=== PATIENT | male | born 1995 | race Caucasian/White ===

== ENCOUNTER 2018-03-15 16:33 | Emergency (ER) | payer BC ==
[2018-03-15] MEDS ORDERED: ONDANSETRON 4 MG/2 ML VIAL ONE (17:01)
[2018-03-15] MEDS ORDERED: MORPHINE 4 MG/ML SYR ONE (17:01)
[2018-03-15 17:04] LABS: Absolute Lymphocytes (CBC) 1.9 K/uL (0.7-4.9); Absolute Monocytes 0.9 K/uL (0.1-1.3); Absolute Neutrophil 4.2 K/uL (1.8-8.0); Basophils % 0.5 % (0-1.3); Eosinophils % 1.9 % (0-4.4); Hematocrit 41.8 % (39.6-49.0); Lymphocytes % 26.5 % (15.3-44.8); MCV 91.5 fL (80-100); MPV 9.5 fL (7.6-11.3); Monocytes % 12.2 % (3.3-12.3); RBC Red Blood Cell Count 4.57 M/uL (4.33-5.43)
[2018-03-15 17:41] LABS: ALT/SGPT 36 U/L (12-78); AST/SGOT 24 U/L (15-37); Albumin 4.2 g/dL (3.4-5.0); Alkaline Phosphatase 105 U/L (45-117); BUN Blood Urea Nitrogen 17 mg/dL (7-18); Bicarbonate 24 mmol/L (21-32); Bilirubin Direct 0.4 mg/dL (0-0.2); Bilirubin Total 1.5 mg/dL (0.2-1.0); Glucose Level 108 mg/dL (74-106); Lipase 48 U/L (73-393); Potassium 3.2 mmol/L (3.5-5.1); Protein, Total 7.2 g/dL (6.4-8.2); Sodium Level 141 mmol/L (136-145)
[2018-03-15] MEDS ORDERED: MAGNESIUM SULFATE 1 gm IVPB 1 GM/100 ML BAG IV ONE (17:52)
[2018-03-15] MEDS ORDERED: NA CHLORIDE 0.9% 1,000 ML ONE (17:52)
[2018-03-15] MEDS ORDERED: KETOROLAC 30 MG/ML INJ ONE (17:52)
[2018-03-15] MEDS ORDERED: TAMSULOSIN 0.4 MG SR CAP ONE (18:33)
[2018-03-15 18:43] LABS: Barbiturates NEGATIVE (NEGATIVE); Benzodiazepines NEGATIVE (NEGATIVE); Cocaine NEGATIVE (NEGATIVE); METHAMPHETAM NEGATIVE (NEGATIVE); Methadone NEGATIVE (NEGATIVE); Opiates POSITIVE (NEGATIVE); Phencyclidine NEGATIVE (NEGATIVE); THC Cannibis NEGATIVE (NEGATIVE)
--- NOTE | 2018-03-15 18:45 | ER ---
Nurse's Notes [facility] Name: Izaiah Clark Jr Age: 22 yrs Sex: Male : 1995 Arrival Date: 03/15/2018 Time: 16:38 Bed 19 Private MD: Diagnosis: Ureterolithiasis Presentation: 03/15 16:57 Presenting complaint: EMS states: LLQ PAIN. Transition of care: patient was not bp received from another setting of care. Onset of symptoms is unknown. Risk Assessment: Do you want to hurt yourself or someone else? Patient reports no desire to harm self or others. Initial Sepsis Screen: Does the patient meet any 2 criteria? No. Patient's initial sepsis screen is negative. Does the patient have a suspected source of infection? No. Patient's initial sepsis screen is negative. Care prior to arrival: IV initiated. 20 GA, in the right antecubital area. 16:57 Method Of Arrival: EMS: [facility] bp 16:57 Acuity: REAGAN 3 bp Triage Assessment: 16:59 General: Appears in no apparent distress. comfortable, slender, unkempt, Behavior is bp cooperative, appropriate for age, anxious. Pain: Complains of pain in abdomen. EENT: No deficits noted. Neuro: Level of Consciousness is awake, alert, obeys commands, Oriented to person, place, time, situation, Appropriate for age. Cardiovascular: No deficits noted. Respiratory: Airway is patent Respiratory effort is even, unlabored, Respiratory pattern is regular, symmetrical. GI: Abdomen is non-distended, Bowel sounds present X 4 quads. : No signs and/or symptoms were reported regarding the genitourinary system. Derm: No deficits noted. Musculoskeletal: Circulation, motion, and sensation intact. Range of motion: intact in all extremities. Historical: - Allergies: 16:59 No Known Allergies; bp - Home Meds: 16:59 None [Active]; bp - PMHx: 16:59 ADD/ADHD; bp - Immunization history:: Adult Immunizations up to date. - Social history:: Smoking status: unknown Patient/guardian denies using alcohol, street drugs. - Ebola Screening: : Patient negative for fever greater than or equal to 101.5 degrees Fahrenheit, and additional compatible Ebola Virus Disease symptoms Patient denies exposure to infectious person Patient denies travel to an Ebola-affected area in the 21 days before illness onset No symptoms or risks identified at this time. - Family history:: not pertinent. - Hospitalizations: : No recent hospitalization is reported. Screenin:02 Abuse screen: Denies threats or abuse. Denies injuries from another. Nutritional bp screening: No deficits noted. Tuberculosis screening: No symptoms or risk factors identified. Fall Risk None identified. Assessment: 17:02 General: SEE TRIAGE NOTE. bp 18:31 Reassessment: ALL CURRENT ORDERS COMPLETED. VS STABLE. PT Rx GIVEN TO PARENT TO FILL bp PRIOR TO D/C. DISPO PENDING. Vital Signs: 16:59 BP 127 / 83; Pulse 86; Resp 20; Temp 98.2; Pulse Ox 100% ; Weight 77.11 kg; Height 6 bp ft. (182.88 cm); 18:31 BP 121 / 79; Pulse 81; Resp 16; Pulse Ox 100% ; bp 16:59 Body Mass Index 23.06 (77.11 kg, 182.88 cm) bp ED Course: 16:38 Patient arrived in ED. rn 16:38 Bj Kothari MD is Attending Physician. rn 16:43 Radiology exam delayed due to lab results not completed at this time. (BUN/Creatinine) vm2 IV insertion attempt and/or patient not having appropriate IV at this time. 16:44 Valentín Laguna, RN is Primary Nurse. bp 16:59 Triage completed. bp 16:59 Arm band placed on. bp 17:02 Patient has correct armband on for positive identification. Bed in low position. Call bp light in reach. Side rails up X2. 17:02 Maintain EMS IV. Dressing intact. Good blood return noted. Site clean \T\ dry. Gauge \T\ bp site: 20 GAUGE R AC. 17:23 CT Abd/Pelvis - W/Contrast In Process Unspecified. EDMS 18:44 Neil Ariza MD is Referral Physician. rn Administered Medications: 16:50 Drug: Zofran 4 mg Route: IVP; Site: right antecubital; bp 17:30 Follow up: Response: No adverse reaction bp 16:50 Drug: morphine 4 mg Route: IVP; Site: right antecubital; bp 17:30 Follow up: Response: Pain is unchanged, physician notified bp 17:50 Drug: NS 0.9% 1000 ml Route: IV; Rate: 1 bolus; Site: right antecubital; bp 17:51 Drug: Ketorolac 30 mg Route: IVP; Site: right antecubital; bp 18:30 Follow up: Response: Pain is decreased bp 17:51 Drug: Magnesium Sulfate 1 grams Route: IVPB; Infused Over: 1 hrs; Site: right bp antecubital; 18:29 Drug: Flomax 0.4 mg Route: PO; bp 18:54 Follow up: Response: No adverse reaction bp 18:54 Drug: Demerol 25 mg Route: IVP; Site: right antecubital; bp 19:14 Follow up: Response: No adverse reaction; Pain is decreased la1 Outcome: 18:44 Discharge ordered by . rn 19:14 Patient left the ED. la1 Signatures: Dispatcher [employer] EDMS Bj Kothari MD MD rn Attema, Lee, RN RN la1 Antonette Mayes 2 Valentín Laguna RN RN bp
--- NOTE | 2018-03-15 18:45 | EDPHYS ---
Physician Documentation [facility] Name: Izaiah Clark Jr Age: 22 yrs Sex: Male : 1995 Arrival Date: 03/15/2018 Time: 16:38 Bed 19 Private MD: ED Physician Bj Kothari HPI: 03/15 17:47 This 22 yrs old Male presents to ER via EMS with complaints of Abdominal Pain.rn 17:47 The patient presents with abdominal pain in the left lower quadrant. Onset: The rn symptoms/episode began/occurred just prior to arrival. The symptoms do not radiate. Associated signs and symptoms: Pertinent positives: nausea and vomiting, Pertinent negatives: anorexia, blood in stools, chest pain, constipation, diarrhea, dysuria, fever, hematuria, testicular pain, vomiting, vomiting blood. Modifying factors: The symptoms are alleviated by nothing, the symptoms are aggravated by movement, touching the area. Severity of pain: At its worst the pain was moderate in the emergency department the pain is unchanged. The patient has not experienced similar symptoms in the past. Woke up with pain in LLQ and left abdomen, assoc with nausea, thrown up once, no fever, no testicle pain, no testicle swelling, no trauma, no hematuria, reports felt fine prior to nap, woke up with pain, constant, but worsening in waves. . Historical: - Allergies: 16:59 No Known Allergies; bp - Home Meds: 16:59 None [Active]; bp - PMHx: 16:59 ADD/ADHD; bp - Immunization history:: Adult Immunizations up to date. - Social history:: Smoking status: unknown Patient/guardian denies using alcohol, street drugs. - Ebola Screening: : Patient negative for fever greater than or equal to 101.5 degrees Fahrenheit, and additional compatible Ebola Virus Disease symptoms Patient denies exposure to infectious person Patient denies travel to an Ebola-affected area in the 21 days before illness onset No symptoms or risks identified at this time. - Family history:: not pertinent. - Hospitalizations: : No recent hospitalization is reported. ROS: 17:47 Constitutional: Negative for fever, chills, and weight loss, Eyes: Negative for injury, rn pain, redness, and discharge, Neck: Negative for injury, pain, and swelling, Cardiovascular: Negative for chest pain, palpitations, and edema, Respiratory: Negative for shortness of breath, cough, wheezing, and pleuritic chest pain, Abdomen/GI: Negative for diarrhea, and constipation, Back: Negative for injury and pain, : Negative for injury, bleeding, discharge, and swelling, MS/Extremity: Negative for injury and deformity, Skin: Negative for injury, rash, and discoloration, Neuro: Negative for headache, weakness, numbness, tingling, and seizure. Exam: 17:47 Constitutional: This is a well developed, well nourished patient who is awake, alert, rn appears uncomfortable Head/Face: Normocephalic, atraumatic. ENT: MMM Cardiovascular: Regular rate and rhythm with a normal S1 and S2. No gallops, murmurs, or rubs. Normal PMI, no JVD. No pulse deficits. Respiratory: Lungs have equal breath sounds bilaterally, clear to auscultation and percussion. No rales, rhonchi or wheezes noted. No increased work of breathing, no retractions or nasal flaring. Abdomen/GI: soft, mild LLQ tenderness, no rebound, no masses Back: No spinal tenderness. No costovertebral tenderness. Full range of motion. MS/ Extremity: Pulses equal, no cyanosis. Neurovascular intact. Full, normal range of motion. Equal circumference. Neuro: Awake and alert, GCS 15, oriented to person, place, time, and situation. Cranial nerves II-XII grossly intact. Motor strength 5/5 in all extremities. Sensory grossly intact. Vital Signs: 16:59 BP 127 / 83; Pulse 86; Resp 20; Temp 98.2; Pulse Ox 100% ; Weight 77.11 kg; Height 6 bp ft. (182.88 cm); 18:31 BP 121 / 79; Pulse 81; Resp 16; Pulse Ox 100% ; bp 16:59 Body Mass Index 23.06 (77.11 kg, 182.88 cm) bp MDM: 16:38 Patient medically screened. rn 18:33 Differential diagnosis: diverticulitis, non-specific abd pain, pancreatitis, rn Ureterolithiasis, urinary tract infection. Data reviewed: vital signs, nurses notes, lab test result(s), radiologic studies, CT scan. Counseling: I had a detailed discussion with the patient and/or guardian regarding: the historical points, exam findings, and any diagnostic results supporting the discharge/admit diagnosis, lab results, radiology results, the need for outpatient follow up, to return to the emergency department if symptoms worsen or persist or if there are any questions or concerns that arise at home. Response to treatment: the patient's symptoms have markedly improved after treatment, and as a result, I will discharge patient. Special discussion: Based on the patient's Hx, exam, and Dx evaluation, there is no indication for emergent surgery or inpatient Tx. It is understood by the patient/guardian that if the Sx's persist or worsen they need to return immediately for re-evaluation. I discussed with the patient/guardian in detail that at this point there is no indication for admission to the hospital. It is understood, however, that if the symptoms persist or worsen the patient needs to return immediately for re-evaluation. Based on the history and exam findings, there is no indication for further emergent testing or inpatient evaluation. I discussed with the patient/guardian the need to see the primary care provider for further evaluation of the symptoms. I discussed with the patient/guardian the need to see the urologist for further evaluation of the symptoms. 18:39 ED course: Prescriptions given to mother anticipating discharge so that she can obtain rn meds prior to pharmacy closure. . 18:43 ED course: Pt with marked improvement of pain, now 05/29. Will dc home with pcp f/u and assembler metal furniture f/u. Return precautions given, feels movement and now feels migration of pain to groin/suprapubic region. Much more comfortable. . 03/15 16:39 Order name: Basic Metabolic Panel; Complete Time: 17:45 03/15 16:39 Order name: CBC with Diff; Complete Time: 17:07 rn 03/15 16:39 Order name: Hepatic Function; Complete Time: 17:45 rn 03/15 16:39 Order name: Lipase; Complete Time: 17:45 03/15 17:45 Order name: Urine Drug Screen 03/15 18:17 Order name: Urine Dipstick--Ancillary (enter results) 03/15 16:40 Order name: CT Abd/Pelvis - W/Contrast 03/15 16:39 Order name: IV Saline Lock; Complete Time: 17:04 03/15 16:39 Order name: Labs collected and sent; Complete Time: 17:04 03/15 17:45 Order name: Urine Dipstick-Ancillary (obtain specimen); Complete Time: 17:51 rn Administered Medications: 16:50 Drug: Zofran 4 mg Route: IVP; Site: right antecubital; bp 17:30 Follow up: Response: No adverse reaction bp 16:50 Drug: morphine 4 mg Route: IVP; Site: right antecubital; bp 17:30 Follow up: Response: Pain is unchanged, physician notified bp 17:50 Drug: NS 0.9% 1000 ml Route: IV; Rate: 1 bolus; Site: right antecubital; bp 17:51 Drug: Ketorolac 30 mg Route: IVP; Site: right antecubital; bp 18:30 Follow up: Response: Pain is decreased bp 17:51 Drug: Magnesium Sulfate 1 grams Route: IVPB; Infused Over: 1 hrs; Site: right bp antecubital; 18:29 Drug: Flomax 0.4 mg Route: PO; bp 18:54 Follow up: Response: No adverse reaction bp 18:54 Drug: Demerol 25 mg Route: IVP; Site: right antecubital; bp 19:14 Follow up: Response: No adverse reaction; Pain is decreased la1 Disposition: 03/15/18 18:44 Discharged to Home. Impression: Ureterolithiasis. - Condition is Stable. - Discharge Instructions: Kidney Stones, Dietary Guidelines to Help Prevent Kidney Stones. - Prescriptions for Zofran ODT 4 mg Oral tablet,disintegrating - place 1 tablet by TRANSLINGUAL route every 8 hours As needed; 20 tablet. Ibuprofen 800 mg Oral Tablet - take 1 tablet by ORAL route every 12 hours As needed take with food; 20 tablet. Tylenol- Codeine #3 300-30 mg Oral Tablet - take 2 tablet by ORAL route every 6 hours As needed; 30 tablet. Flomax 0.4 mg Oral Capsule, Sust. Release 24 hr - take 1 capsule by ORAL route once daily 1/2 hour following the same meal each day; 5 capsule. - Medication Reconciliation Form, Thank You Letter, Antibiotic Education, Prescription Opioid Use form. - Work release form (03/15/18 19:20). em1 - Family Work Release (03/15/18 19:20). em1 - Follow up: Neil Ariza MD; When: As needed; Reason: Recheck today's complaints, Re-evaluation by your physician. - Problem is new. - Symptoms have improved. Signatures: Dispatcher [employer] EDMS Bj Kothari MD MD rn Attema, Lee, RN RN la1 Valentín Laguna RN RN Marvin Romero1 Corrections: (The following items were deleted from the chart) 19:14 18:44 03/15/2018 18:44 Discharged to Home. Impression: Ureterolithiasis. Condition is la1 Stable. Discharge Instructions: Kidney Stones, Dietary Guidelines to Help Prevent Kidney Stones. Prescriptions for Zofran ODT 4 mg Oral tablet,disintegrating - place 1 tablet by TRANSLINGUAL route every 8 hours As needed; 20 tablet, Ibuprofen 800 mg Oral Tablet - take 1 tablet by ORAL route every 12 hours As needed take with food; 20 tablet, Tylenol-Codeine #3 300-30 mg Oral Tablet - take 2 tablet by ORAL route every 6 hours As needed; 30 tablet, Flomax 0.4 mg Oral Capsule, Sust. Release 24 hr - take 1 capsule by ORAL route once daily 1/2 hour following the same meal each day; 5 capsule. and Forms are Medication Reconciliation Form, Thank You Letter, Antibiotic Education, Prescription Opioid Use. Follow up: Neil Ariza; When: As needed; Reason: Recheck today's complaints, Re-evaluation by your physician. Problem is new. Symptoms have improved. rn
[2018-03-15 18:54] LABS: Urine Blood 3+ (NEG); Urine Glucose NEGATIVE (NEG); Urine Protein 2+ (NEG); Urine Specific Gravity 1.015 (1.005-1.030)
[2018-03-15] MEDS ORDERED: MEPERIDINE HCL 25 MG/0.5 ML ONE (18:58)
--- NOTE | 2018-03-16 11:14 | RAD REPORT ---
EXAM DESCRIPTION: CT - Abdomen Pelvis W Contrast - 03/15/2018 9:41 pm CLINICAL HISTORY: Abdominal pain, left flank pain Final written report was delayed due to network malfunction. Images were reviewed and findings teleph oned to the emergency department at the time of the study. COMPARISON: None. TECHNIQUE: Biphasic, helical CT imaging of the abdomen and pelvis was performed following 100 ml non -ionic IV contrast. Oral contrast was given. All CT scans are performed using dose optimization technique as appropriate and may include automated exposure control or mA/KV adjustment according to patient size. FINDINGS: No suspicious findings in the lung bases. The liver, spleen, and pancreas show no suspicious findings. Gallbladder and biliary tree are also wi thout suspicious finding. Renal function is asymmetric, delayed on the left, with no pyelonephritis or suspicious renal parench ymal process. No right-sided hydronephrosis. Patient has left-sided hydronephrosis secondary to a 5 m m left ureter calcification. When viewed on a KUB projection the obstructing stone would be superimpo sed on the left lateral margin L3 vertebrae. No other obstructing or nonobstructing calculi. No adren al gland abnormality. Contracted urinary bladder shows no suspicious finding. No dilated bowel loops or bowel wall thickening. No free air, free fluid or inflammatory stranding. No hernia, mass or bulky lymphadenopathy. No suspicious bony findings. IMPRESSION: Mild left-sided hydronephrosis secondary to a 5 mm left mid ureter stone. When viewed on a KUB projection, the obstructing calculus would be superimposed on the left lateral m argin L3 vertebrae.
== END 2018-03-15 19:14 | disposition home or self-care (01) ==
LOC: ER 16:33
DX: N20.1 Calculus of ureter (principal)
CPT/HCPCS: 36415; 74177; 80048; 80076; 80307; 81003; 83690; 85025; 96374; 96375; 99283; J2175; J2405; J3475; J7030; Q9967

== ENCOUNTER 2018-03-19 08:47 | Emergency (ER) | payer BC ==
[2018-03-19 10:00] LABS: Absolute Lymphocytes (CBC) 1.4 K/uL (0.7-4.9); Absolute Monocytes 0.6 K/uL (0.1-1.3); Absolute Neutrophil 3.2 K/uL (1.8-8.0); Basophils % 0.4 % (0-1.3); Eosinophils % 2.8 % (0-4.4); Hematocrit 40.9 % (39.6-49.0); Lymphocytes % 26.1 % (15.3-44.8); MCH 31.4 pg (27.0-35.0); MCV 91.3 fL (80-100); Monocytes % 11.5 % (3.3-12.3); RBC Red Blood Cell Count 4.48 M/uL (4.33-5.43)
[2018-03-19 10:10] LABS: BUN Blood Urea Nitrogen 11 mg/dL (7-18); Bicarbonate 26 mmol/L (21-32); Glucose Level 97 mg/dL (74-106); Potassium 3.6 mmol/L (3.5-5.1); Sodium Level 141 mmol/L (136-145)
[2018-03-19 10:48] LABS: Urine Bacteria NONE SEEN /HPF (NONE SEEN)
[2018-03-19 10:49] LABS: Urine Culture Reflex Order NOT NEEDED; Urine Mucus 1+ /HPF (NONE SEEN)
--- NOTE | 2018-03-19 10:53 | RAD REPORT ---
EXAM DESCRIPTION: RAD - Abdomen 1 View (KUB) - 03/19/2018 10:40 am CLINICAL HISTORY: history left kidney stone Pain COMPARISON: Abdomen Pelvis W Contrast dated 03/15/2018 FINDINGS: The bowel gas pattern is non-obstructive. No evidence of free air or pneumatosis. Small ca lcification in the left pelvis probably represents the patient's prior left ureter stone which has mi grated to the left UVJ.
--- NOTE | 2018-03-19 12:35 | ER ---
Nurse's Notes [facility] Name: Izaiah Clark Jr Age: 22 yrs Sex: Male : 1995 Arrival Date: 03/19/2018 Time: 08:50 Bed 19 Private MD: None, None Diagnosis: Hematuria, unspecified;Calculus of lower urinary tract, unspecified Presentation: 03/19 09:08 Presenting complaint: Patient states: was seen here Wednesday night for kidney stone, was em told to come back to ER in 3-4 days if not passed, pt reports having a 5cm stone, currently denies N/V, pain or fever. Transition of care: patient was not received from another setting of care. Onset of symptoms was March 15, 2018. Risk Assessment: Do you want to hurt yourself or someone else? Patient reports no desire to harm self or others. Initial Sepsis Screen: Does the patient meet any 2 criteria? No. Patient's initial sepsis screen is negative. Does the patient have a suspected source of infection? No. Patient's initial sepsis screen is negative. Care prior to arrival: None. 09:08 Method Of Arrival: Ambulatory em 09:15 Acuity: REAGAN 3 hb Triage Assessment: 09:11 General: Appears in no apparent distress. comfortable, Behavior is calm, cooperative. em Pain: Denies pain. GI: Abdomen is flat, Bowel sounds present X 4 quads. Abd is soft and non tender X 4 quads. Historical: - Allergies: 09:11 No Known Allergies; em - PMHx: 09:11 ADD/ADHD; Kidney stones; em - PSHx: 09:11 None; em - Immunization history:: Adult Immunizations not up to date. - Social history:: Smoking status: Patient/guardian denies using tobacco. - Ebola Screening: : Patient negative for fever greater than or equal to 101.5 degrees Fahrenheit, and additional compatible Ebola Virus Disease symptoms Patient denies exposure to infectious person Patient denies travel to an Ebola-affected area in the 21 days before illness onset No symptoms or risks identified at this time. Screenin:12 Abuse screen: Denies threats or abuse. Nutritional screening: No deficits noted. em Tuberculosis screening: No symptoms or risk factors identified. Fall Risk None identified. Assessment: 09:11 General: Appears in no apparent distress. distressed, comfortable, well groomed, well em developed, well nourished, Behavior is calm, cooperative, Denies fever. Pain: Denies pain. Neuro: Level of Consciousness is awake, alert, obeys commands, Oriented to person, place, time, situation. Cardiovascular: Capillary refill < 3 seconds Patient's skin is warm and dry. Respiratory: Airway is patent Respiratory effort is even, unlabored, Respiratory pattern is regular, symmetrical. GI: Abdomen is flat, Bowel sounds present X 4 quads. Abd is soft and non tender X 4 quads. Patient currently denies nausea, vomiting. : Denies burning with urination, inability to void. EENT: No signs and/or symptoms were reported regarding the EENT system. Derm: Skin is intact, Skin is pink, warm \T\ dry. Musculoskeletal: Circulation, motion, and sensation intact. Capillary refill < 3 seconds, Range of motion: intact in all extremities. 09:15 Reassessment: I agree with previous assessment. hb 10:00 Reassessment: Patient appears in no apparent distress at this time. Patient and/or em family updated on plan of care and expected duration. Pain level reassessed. Patient is alert, oriented x 3, equal unlabored respirations, skin warm/dry/pink. Patient denies pain at this time. 11:00 Reassessment: Patient appears in no apparent distress at this time. Patient and/or em family updated on plan of care and expected duration. Pain level reassessed. Patient is alert, oriented x 3, equal unlabored respirations, skin warm/dry/pink. Patient denies pain at this time. 11:41 Reassessment: Patient appears in no apparent distress at this time. Patient and/or em family updated on plan of care and expected duration. Pain level reassessed. Patient is alert, oriented x 3, equal unlabored respirations, skin warm/dry/pink. ultrasound at bedside. 12:44 Reassessment: Patient appears in no apparent distress at this time. Patient and/or em family updated on plan of care and expected duration. Pain level reassessed. Patient is alert, oriented x 3, equal unlabored respirations, skin warm/dry/pink. Patient denies pain at this time. Vital Signs: 09:11 BP 114 / 76; Pulse 67; Resp 18; Temp 98.0(O); Pulse Ox 100% on R/A; Weight 58.97 kg; em Height 6 ft. 0 in. (182.88 cm); Pain 0/10; 10:00 BP 114 / 72; Pulse 67; Resp 18; Pulse Ox 100% on R/A; Pain 0/10; em 11:42 BP 118 / 77; Pulse 63; Resp 16; Pulse Ox 99% on R/A; Pain 0/10; em 12:44 BP 119 / 79; Pulse 69; Resp 16; Pulse Ox 99% on R/A; Pain 0/10; em 09:11 Body Mass Index 17.63 (58.97 kg, 182.88 cm) em ED Course: 08:50 Patient arrived in ED. sb2 08:51 None, None is Private Physician. sb2 09:01 Dago Espinosa LVN is Primary Nurse. em 09:11 Arm band placed on. em 09:12 Patient has correct armband on for positive identification. Placed in gown. Bed in low em position. Call light in reach. Side rails up X2. Adult w/ patient. 09:15 Triage completed. hb 09:23 Urine collected: clean catch specimen, clear. em 09:39 Nic Pham PA is PHCP. cp 09:39 Nic Herrera MD is Attending Physician. cp 09:52 Initial lab(s) drawn, by me, sent to lab. Inserted saline lock: 20 gauge in right em antecubital area, using aseptic technique. Blood collected. 11:28 Ultrasound completed. Patient tolerated well. sg3 12:33 Neil Ariza MD is Referral Physician. cp 12:44 No provider procedures requiring assistance completed. IV discontinued, intact, em bleeding controlled, No redness/swelling at site. Pressure dressing applied. Administered Medications: No medications were administered Outcome: 12:34 Discharge ordered by . cp 12:44 Discharged to home ambulatory, with family. em 12:44 Condition: good 12:44 Discharge instructions given to patient, family, Instructed on discharge instructions, follow up and referral plans. urine strainer, Demonstrated understanding of instructions, follow-up care. 12:45 Patient left the ED. em Signatures: Dago Espinosa LVN LVN em Nic Pham PA PA cp Baxter, Heather, RN RN Kayleigh Nicole sg3 Martha Brandon sb2 Corrections: (The following items were deleted from the chart) :14 09:08 Presenting complaint: Patient states: was seen here Wednesday night for kidney em stone, was told to come back to ER in 3-4 days if not passed, pt reports having a 5cm stone, currently denies N/V, pain or fever em
--- NOTE | 2018-03-19 12:35 | EDPHYS ---
Physician Documentation [facility] Name: Izaiah Clrak Jr Age: 22 yrs Sex: Male : 1995 Arrival Date: 03/19/2018 Time: 08:50 Bed 19 Private MD: None, None ED Physician Nic Herrera HPI: 03/19 09:50 This 22 yrs old Male presents to ER via Ambulatory with complaints of cp Possible Kidney Stone. 09:50 Patient reports being diagnosed with left side ureter stone this past Wednesday. Patient cp denies pain today and is here for f/u. Historical: - Allergies: 09:11 No Known Allergies; em - PMHx: 09:11 ADD/ADHD; Kidney stones; em - PSHx: 09:11 None; em - Immunization history:: Adult Immunizations not up to date. - Social history:: Smoking status: Patient/guardian denies using tobacco. - Ebola Screening: : Patient negative for fever greater than or equal to 101.5 degrees Fahrenheit, and additional compatible Ebola Virus Disease symptoms Patient denies exposure to infectious person Patient denies travel to an Ebola-affected area in the 21 days before illness onset No symptoms or risks identified at this time. ROS: 10:00 Constitutional: Negative for body aches, chills, fever, poor PO intake. cp 10:00 Eyes: Negative for injury, pain, redness, and discharge. cp 10:00 ENT: Negative for drainage from ear(s), ear pain, sore throat, difficulty swallowing, difficulty handling secretions. 10:00 Cardiovascular: Negative for chest pain, edema, palpitations. 10:00 Respiratory: Negative for cough, shortness of breath, wheezing. 10:00 Abdomen/GI: Negative for abdominal pain, nausea, vomiting, and diarrhea, constipation. 10:00 Back: Negative for pain at rest, pain with movement, radiated pain. 10:00 : Negative for urinary symptoms, testicular pain 10:00 Skin: Negative for cellulitis, rash. 10:00 Neuro: Negative for headache, weakness. 10:00 All other systems are negative. Exam: 10:05 Constitutional: The patient appears in no acute distress, alert, awake, comfortable, cp non-toxic, well developed, well nourished. 10:05 Head/Face: Normocephalic, atraumatic. cp 10:05 Eyes: Periorbital structures: appear normal, Conjunctiva: normal, no exudate, no injection, Sclera: no appreciated abnormality, Lids and lashes: appear normal, bilaterally. 10:05 ENT: External ear(s): are unremarkable, Nose: is normal, Mouth: Lips: moist, Oral mucosa: pink and intact, moist, Posterior pharynx: is normal, airway is patent, no erythema, no exudate. 10:05 Chest/axilla: Inspection: normal, Palpation: is normal, no crepitus, no tenderness. 10:05 Cardiovascular: Rate: normal, Rhythm: regular. 10:05 Respiratory: the patient does not display signs of respiratory distress, Respirations: normal, no use of accessory muscles, no retractions, no splinting, no tachypnea, labored breathing, is not present, Breath sounds: are clear throughout, no decreased breath sounds, no stridor, no wheezing. 10:05 Abdomen/GI: Inspection: abdomen appears normal, Bowel sounds: active, all quadrants, Palpation: abdomen is soft and non-tender, in all quadrants, rebound tenderness, is not appreciated, voluntary guarding, is not appreciated, involuntary guarding, is not appreciated. 10:05 Back: CVA tenderness, is absent. 10:05 Skin: cellulitis, is not appreciated, no rash present. 10:05 Neuro: Orientation: to person, place \T\ time. Mentation: is normal, Cerebellar function: is grossly normal, Motor: moves all fours, strength is normal, Sensation: is normal. Vital Signs: 09:11 BP 114 / 76; Pulse 67; Resp 18; Temp 98.0(O); Pulse Ox 100% on R/A; Weight 58.97 kg; em Height 6 ft. 0 in. (182.88 cm); Pain 0/10; 10:00 BP 114 / 72; Pulse 67; Resp 18; Pulse Ox 100% on R/A; Pain 0/10; em 11:42 BP 118 / 77; Pulse 63; Resp 16; Pulse Ox 99% on R/A; Pain 0/10; em 12:44 BP 119 / 79; Pulse 69; Resp 16; Pulse Ox 99% on R/A; Pain 0/10; em 09:11 Body Mass Index 17.63 (58.97 kg, 182.88 cm) em MDM: 09:40 Patient medically screened. 10:00 Differential diagnosis: nephrolithiasis, pyelonephritis, UTI, testicular torsion. 12:33 Data reviewed: vital signs, nurses notes, lab test result(s), radiologic studies, plain cp films, ultrasound, and as a result, I will discharge patient. 12:33 Counseling: I had a detailed discussion with the patient and/or guardian regarding: the cp historical points, exam findings, and any diagnostic results supporting the discharge/admit diagnosis, lab results, radiology results, the need for outpatient follow up, a urologist, to return to the emergency department if symptoms worsen or persist or if there are any questions or concerns that arise at home. ED course: VSS. Patient denies any pain. Will discharge to home for continued monitoring and recommend f/u with urology. 03/20 12:33 ED course: Spoke with patient concerning radiology findings of calculus at left UVJ. Patient instructed to contact office of DR Ariza tomorrow for f/u. 03/19 09:44 Order name: Urine Microscopic Only 03/19 09:44 Order name: BMP 03/19 09:44 Order name: CBC with Diff 03/19 10:01 Order name: CBC with Automated Diff; Complete Time: 10:27 EDMS 03/19 10:27 Interpretation: Reviewed. 03/19 10:05 Order name: Urine Dipstick--Ancillary (enter results) 03/19 10:10 Order name: Basic Metabolic Panel; Complete Time: 10:27 EDMS 03/19 10:27 Interpretation: Normal except: CL 108. 03/19 09:44 Order name: Urine Dipstick-Ancillary (obtain specimen); Complete Time: 09:52 03/19 09:44 Order name: XRAY KUB 03/19 10:49 Order name: Urine Microscopic Only; Complete Time: 11:00 EDMS 03/19 11:00 Interpretation: Normal except: URBC 10-20. 03/19 10:53 Order name: RAD; Complete Time: 11:00 EDMS 03/19 11:02 Order name: US Rp Exam Limited 03/19 12:41 Order name: US; Complete Time: 10:27 EDMS Administered Medications: No medications were administered Disposition: 03/19/18 12:34 Discharged to Home. Impression: Hematuria, unspecified, Calculus of lower urinary tract, unspecified. - Condition is Stable. - Discharge Instructions: Hematuria, Adult. - Medication Reconciliation Form, Thank You Letter, Antibiotic Education, Prescription Opioid Use form. - Follow up: Neil Ariza MD; When: 2 - 3 days; Reason: Recheck today's complaints. - Problem is new. - Symptoms have improved. Addendum: 03/21/2018 07:19 Co-signature as Attending Physician, Nic Herrera MD I agree with the assessment and c adame plan of care. Signatures: Dispatcher [employer] EDNH Nic Herrera MD MD cha Munoz, Edgar, LEARNING AND DEVELOPMENT ADMINISTRATOR LEARNING AND DEVELOPMENT ADMINISTRATOR em Nic Pham PA PA cp Corrections: (The following items were deleted from the chart) 03/19 12:45 12:34 03/19/2018 12:34 Discharged to Home. Impression: Hematuria, unspecified; Calculus em of lower urinary tract, unspecified. Condition is Stable. Forms are Medication Reconciliation Form, Thank You Letter, Antibiotic Education, Prescription Opioid Use. Follow up: Neil Ariza; When: 2 - 3 days; Reason: Recheck today's complaints. Problem is new. Symptoms have improved. cp
--- NOTE | 2018-03-19 12:40 | RAD REPORT ---
EXAM DESCRIPTION: US - Renal Ultrasound-Limited - 03/19/2018 12:25 pm CLINICAL HISTORY: history left kidney stone, hematuria COMPARISON: Abdomen 1 View (KUB) dated 03/19/2018; Abdomen Pelvis W Contrast dated 03/15/2018 FINDINGS: A limited study was requested. The right kidney was not imaged. The left kidney measures 11.4 x 5.2 x 4.4 cm. No hydronephrosis, focal mass or perinephric fluid. Small stone is present at the left UVJ of the bladder. IMPRESSION: Small stone is suspected along the left UVJ of the bladder.
== END 2018-03-19 12:45 | disposition home or self-care (01) ==
LOC: ER 08:47
DX: N21.8 Other lower urinary tract calculus (principal)
CPT/HCPCS: 36415; 74018; 76775; 80048; 81015; 85025; 99283

== ENCOUNTER 2018-09-28 10:15 | Emergency (ER) | payer BC ==
--- NOTE | 2018-09-28 11:02 | ER ---
Nurse's Notes [facility] Name: Izaiah Clark Jr Age: 22 yrs Sex: Male : 1995 Arrival Date: 09/28/2018 Time: 10:17 Bed 12 Private MD: Diagnosis: Right foot pain;Tendonitis Presentation: 09/28 10:20 Presenting complaint: Patient states: i fell about 3 hours ago and hurt the bottom of hj my R foot; pain is 2/10;. Transition of care: patient was not received from another setting of care. Onset of symptoms was September 28, 2018. Risk Assessment: Do you want to hurt yourself or someone else? Patient reports no desire to harm self or others. Initial Sepsis Screen: Does the patient meet any 2 criteria? No. Patient's initial sepsis screen is negative. Does the patient have a suspected source of infection? No. Patient's initial sepsis screen is negative. Care prior to arrival: None. 10:20 Method Of Arrival: Ambulatory 10:20 Acuity: REAGAN 4 hj Triage Assessment: 10:25 General: Appears in no apparent distress. uncomfortable, Behavior is calm, cooperative, hj appropriate for age. Pain: Complains of pain in right foot. EENT: No signs and/or symptoms were reported regarding the EENT system. Neuro: Level of Consciousness is awake, alert, obeys commands, Oriented to person, place, time, situation, Appropriate for age. Cardiovascular: Capillary refill < 3 seconds Patient's skin is warm and dry. Respiratory: Airway is patent Respiratory effort is even, unlabored, Respiratory pattern is regular, symmetrical. GI: No signs and/or symptoms were reported involving the gastrointestinal system. : No signs and/or symptoms were reported regarding the genitourinary system. Derm: No signs and/or symptoms reported regarding the dermatologic system. Musculoskeletal: Reports pain in right foot. Historical: - Allergies: 10:21 No Known Allergies; hj - Home Meds: 10:21 None [Active]; hj - PMHx: 10:21 ADD/ADHD; Kidney stones; hj - PSHx: 10:21 None; hj - Immunization history:: Adult Immunizations up to date. - Social history:: Smoking status: Patient/guardian denies using tobacco, Patient/guardian denies using alcohol. - Ebola Screening: : Patient negative for fever greater than or equal to 101.5 degrees Fahrenheit, and additional compatible Ebola Virus Disease symptoms Patient denies exposure to infectious person Patient denies travel to an Ebola-affected area in the 21 days before illness onset. Screenin:25 Abuse screen: Denies threats or abuse. Denies injuries from another. Nutritional hj screening: No deficits noted. Tuberculosis screening: No symptoms or risk factors identified. Fall Risk None identified. Assessment: 10:26 Reassessment: see triage notes for assessment;. Reassessment: ice pack applied to R hj foot;. Vital Signs: 10:21 BP 129 / 68; Pulse 83; Resp 16; Temp 99.4(TE); Pulse Ox 99% on R/A; Weight 77.11 kg; hj Height 6 ft. 0 in. (182.88 cm); Pain 2/10; 10:21 Body Mass Index 23.06 (77.11 kg, 182.88 cm) ED Course: 10:17 Patient arrived in ED. mr 10:21 Triage completed. hj 10:21 Arm band placed on left wrist. hj 10:25 Gumaro Peacock, RN is Primary Nurse. hj 10:25 Alessandro Amado MD is Attending Physician. ps1 10:26 Patient has correct armband on for positive identification. Bed in low position. Call light in reach. Side rails up X 1. Adult w/ patient. 10:52 Foot Right 3 View XRAY In Process Unspecified. EDMS 11:27 No provider procedures requiring assistance completed. Patient did not have IV access ss during this emergency room visit. Ortho shoe applied to right foot. Administered Medications: No medications were administered Outcome: 11:01 Discharge ordered by . ps1 11:30 Discharged to home ambulatory, with family. ss 11:30 Condition: good 11:30 Discharge instructions given to patient, family, Instructed on discharge instructions, follow up and referral plans. medication usage, Demonstrated understanding of instructions, follow-up care, medications, Prescriptions given X 1. 11:31 Patient left the ED. ss Signatures: Dispatcher [employer] EDAK Paola De Los SantosPolly RN RN ss Joaquin, Henry, RN RN hj Singer, Phillip, MD MD ps1 Corrections: (The following items were deleted from the chart) 10:22 10:21 Pulse 83bpm; Resp 16bpm; Pulse Ox 99% RA; Temp 99.4F Temporal; 77.11 kg; Height 6 hj ft. 0 in.; BMI: 23.0; Pain 2/10; hj
--- NOTE | 2018-09-28 11:02 | EDPHYS ---
Physician Documentation [facility] Name: Izaiah Clark Jr Age: 22 yrs Sex: Male : 1995 Arrival Date: 09/28/2018 Time: 10:17 Bed 12 Private MD: ED Physician Alessandro Amado HPI: 09/28 10:29 This 22 yrs old Male presents to ER via Ambulatory with complaints of Foot ps1 Injury. 10:29 patient states that he fell a couple of hours ago and now has pain with weight bearing. ps1 No obvious deformity. Maintains FROM. Pain is rated as mild. Localized to the arch of the foot. . Historical: - Allergies: 10:21 No Known Allergies; hj - Home Meds: 10:21 None [Active]; hj - PMHx: 10:21 ADD/ADHD; Kidney stones; hj - PSHx: 10:21 None; hj - Immunization history:: Adult Immunizations up to date. - Social history:: Smoking status: Patient/guardian denies using tobacco, Patient/guardian denies using alcohol. - Ebola Screening: : Patient negative for fever greater than or equal to 101.5 degrees Fahrenheit, and additional compatible Ebola Virus Disease symptoms Patient denies exposure to infectious person Patient denies travel to an Ebola-affected area in the 21 days before illness onset. ROS: 10:29 Constitutional: Negative for fever, chills, and weight loss, Cardiovascular: Negative ps1 for chest pain, palpitations, and edema, Respiratory: Negative for shortness of breath, cough, wheezing, and pleuritic chest pain, Abdomen/GI: Negative for abdominal pain, nausea, vomiting, diarrhea, and constipation, Skin: Negative for injury, rash, and discoloration, Neuro: Negative for headache, weakness, numbness, tingling, and seizure. 10:29 MS/extremity: Positive for decreased range of motion, pain, tenderness, of the instep of right foot. Exam: 10:29 Constitutional: This is a well developed, well nourished patient who is awake, alert, ps1 and in no acute distress. Head/Face: Normocephalic, atraumatic. Eyes: Pupils equal round and reactive to light, extra-ocular motions intact. Lids and lashes normal. Conjunctiva and sclera are non-icteric and not injected. Cardiovascular: Regular rate and rhythm. No gallops, murmurs, or rubs. Normal PMI, no JVD. No pulse deficits. Respiratory: Lungs have equal breath sounds bilaterally, clear to auscultation and percussion. No rales, rhonchi or wheezes noted. No increased work of breathing, no retractions or nasal flaring. Abdomen/GI: Soft, non-tender, with normal bowel sounds. No distension or tympany. No guarding or rebound. No evidence of tenderness throughout. 10:29 Skin: Warm, dry with normal turgor. Normal color with no rashes, no lesions, and no evidence of cellulitis. Neuro: Awake and alert, GCS 15, oriented to person, place, time, and situation. Cranial nerves II-XII grossly intact. Sensory grossly intact. 10:29 Musculoskeletal/extremity: Extremities: grossly normal except: noted in the right foot: decreased ROM, pain. Vital Signs: 10:21 BP 129 / 68; Pulse 83; Resp 16; Temp 99.4(TE); Pulse Ox 99% on R/A; Weight 77.11 kg; hj Height 6 ft. 0 in. (182.88 cm); Pain 2/10; 10:21 Body Mass Index 23.06 (77.11 kg, 182.88 cm) hj MDM: 10:40 Patient medically screened. ps1 11:00 Data reviewed: vital signs, nurses notes, radiologic studies, and as a result, I will ps1 discharge patient. Counseling: I had a detailed discussion with the patient and/or guardian regarding: the historical points, exam findings, and any diagnostic results supporting the discharge/admit diagnosis, radiology results, the need for outpatient follow up, a orthopedic surgeon, to return to the emergency department if symptoms worsen or persist or if there are any questions or concerns that arise at home. 09/28 10:25 Order name: Foot Right 3 View XRAY ps1 Administered Medications: No medications were administered Disposition: 09/28/18 11:01 Discharged to Home. Impression: Right foot pain, Tendonitis. - Condition is Stable. - Discharge Instructions: Foot Pain. - Prescriptions for Anaprox DS 550 mg Oral Tablet - take 1 tablet by ORAL route every 12 hours As needed; 20 tablet. - Work release form, Medication Reconciliation Form, Thank You Letter, Antibiotic Education, Prescription Opioid Use form. - Follow up: Private Physician; When: As needed; Reason: Further diagnostic work-up, Recheck today's complaints, Continuance of care, Re-evaluation by your physician. Follow up: Emergency Department; When: As needed; Reason: Worsening of condition. - Problem is new. - Symptoms are unchanged. Signatures: Dispatcher [employer] EDMS Polly Pickard RN RN Gumaro Peacock RN RN Alessandro Amado MD MD ps1 Corrections: (The following items were deleted from the chart) 11:31 11:01 09/28/2018 11:01 Discharged to Home. Impression: Right foot pain; Tendonitis. ss Condition is Stable. Forms are Medication Reconciliation Form, Thank You Letter, Antibiotic Education, Prescription Opioid Use. Follow up: Private Physician; When: As needed; Reason: Further diagnostic work-up, Recheck today's complaints, Continuance of care, Re-evaluation by your physician. Follow up: Emergency Department; When: As needed; Reason: Worsening of condition. Problem is new. Symptoms are unchanged. ps1
--- NOTE | 2018-09-28 11:09 | RAD REPORT ---
EXAM DESCRIPTION: RAD - Foot Right 3 View - 09/28/2018 10:49 am CLINICAL HISTORY: Fall, foot pain COMPARISON: None. FINDINGS: No fracture, dislocation or periosteal reaction. No air or foreign body in the soft tissues. IMPRESSION: Negative right foot examination. If the patient has continued symptoms, followup MR imaging could be performed to assess for bone brui se or other occult bone process.
== END 2018-09-28 11:31 | disposition home or self-care (01) ==
LOC: ER 10:15
DX: M77.9 Enthesopathy, unspecified (principal)
CPT/HCPCS: 99283

== ENCOUNTER 2022-10-15 19:21 | Emergency (ER) | payer BC, OTHER ==
[2022-10-15] MEDS ORDERED: ONDANSETRON 4 MG/2 ML VIAL ONE (19:49)
[2022-10-15] MEDS ORDERED: KETOROLAC 30 MG/ML INJ ONE (19:50)
[2022-10-15] MEDS ORDERED: NA CHLORIDE 0.9% 1,000 ML ONE (19:50)
[2022-10-15 20:09] LABS: Absolute Lymphocytes (CBC) 2.4 K/uL (0.7-4.9); Hematocrit 45.9 % (39.6-49.0); Lymphocytes % 32.4 % (15.3-44.8); MCV 92.9 fL (80-100); MPV 9.4 fL (7.6-11.3); RBC Red Blood Cell Count 4.94 M/uL (4.33-5.43)
--- NOTE | 2022-10-15 20:31 | RAD REPORT ---
EXAM DESCRIPTION: CT - Stone Protocol - 10/15/2022 8:01 pm CLINICAL HISTORY: FLANK PAIN COMPARISON: Stone Protocol dated 03/21/2018; Abdomen Pelvis W Contrast dated 03/15/2018 TECHNIQUE: Thin cut axial CT imaging of the abdomen and pelvis was performed without IV contrast. Mu ltiplanar reformats were generated and reviewed. All CT scans are performed using dose optimization technique as appropriate and may include automated exposure control or mA/KV adjustment according to patient size. FINDINGS: No suspicious findings in the lung bases. The liver, spleen, and pancreas show no suspicious findings. Gallbladder shows mild layering hyperden se sludge. No calculi. No intra or extrahepatic biliary ductal dilation. Symmetric renal contour, without suspicious parenchymal findings within limits of noncontrast techniq ue. Mild right hydronephrosis. 7 millimeter calculus at the right pelviureteric junction. No hydroure teronephrosis or obstructing calculi on the left. No dilated bowel loops or bowel wall thickening. No free air, free fluid or inflammatory stranding. N o hernia, mass or bulky lymphadenopathy. The urinary bladder is suboptimally distended limiting evalu ation. No suspicious bony findings. IMPRESSION: Mild right hydronephrosis with a right pelviureteric junction 7 millimeter calculus. The findings were communicated to emilie stone on 10/15/2022 at 20:26 hours.
[2022-10-15 20:45] LABS: Specific Gravity 1.029 (1.005-1.030); Urine Bacteria 20-50 /HPF (<20); Urine Bilirubin NEGATIVE (Negative); Urine Blood 3+ (OVER) (Negative); Urine Clarity Extremely Turbid (Clear); Urine Color Dark-Brown (Yellow); Urine Crystals Unidentified Moderate /HPF (None Seen); Urine Glucose NEGATIVE (Negative); Urine Mucus 4+ /HPF (None Seen); Urine Protein 2+ (Negative); Urine RBC >50 /HPF (None Seen); Urine Urobilinogen Normal (Normal); Urine WBC Clump Many /HPF (None Seen); Urine pH 5.5 (5.0-7.0)
[2022-10-15] MEDS ORDERED: MAGNESIUM SULFATE 1 gm IVPB 1 GM/100 ML BAG IV ONE (20:49)
[2022-10-15] MEDS ORDERED: TAMSULOSIN 0.4 MG SR CAP ONE (20:49)
[2022-10-15 20:54] LABS: Albumin 3.8 g/dL (3.4-5.0); Bilirubin Total 1.1 mg/dL (0.2-1.0); Potassium 3.3 mEq/L (3.5-5.1); Protein, Total 7.1 g/dL (6.4-8.2)
[2022-10-15] MEDS ORDERED: POTASSIUM CL SA 10 MEQ TAB PO ONE (21:05)
--- NOTE | 2022-10-15 21:49 | EDPHYS ---
Physician Documentation [facility] Name: Izaiah Clark Jr Age: 26 yrs Sex: Male : 1995 Arrival Date: 10/15/2022 Time: 19:21 Bed 19 Private MD: ED Physician Bj Kothari HPI: 10/15 22:04 This 26 yrs old Male presents to ER via Ambulatory with complaints of Back Pain. kb 22:04 The patient complains of pain in the right flank. The pain does not radiate. Onset: The kb symptoms/episode began/occurred 3 day(s) ago. Modifying factors: The symptoms are alleviated by nothing. the symptoms are aggravated by nothing. Associated signs and symptoms: Pertinent positives: hematuria, nausea, Pertinent negatives: dysuria, fever. Severity of pain: At its worst the pain was moderate in the emergency department the pain is unchanged. The patient has experienced similar episodes in the past. The patient has not recently seen a physician. Historical: - Allergies: 19:34 No Known Allergies; lg3 - Home Meds: 19:34 None [Active]; lg3 - PMHx: 19:34 ADD/ADHD; Kidney stones; lg3 - PSHx: 19:34 None; lg3 - Immunization history:: Adult Immunizations up to date, Client reports receiving the 2nd dose of the Covid vaccine. - Social history:: Smoking status: Reported history of juuling and/or vaping. Patient/guardian denies using alcohol, street drugs. ROS: 22:01 Constitutional: Negative for fever, chills, and weight loss. kb 22:01 Back: Positive for flank pain, on the right. 22:01 : Positive for hematuria. 22:01 All other systems are negative. Exam: 22:01 Constitutional: This is a well developed, well nourished patient who is awake, alert, kb and in no acute distress. Head/Face: Normocephalic, atraumatic. ENT: Moist Mucous membranes Cardiovascular: Regular rate and rhythm with a normal S1 and S2. No gallops, murmurs, or rubs. No pulse deficits. Respiratory: Respirations even and unlabored. No increased work of breathing. Talking in full sentences Abdomen/GI: Soft, non-tender. No distention Skin: Warm, dry with normal turgor. Normal color. MS/ Extremity: Pulses equal, no cyanosis. Neurovascular intact. Full, normal range of motion. Neuro: Awake and alert, GCS 15, oriented to person, place, time, and situation. Moves all extremities. Normal gait. 22:01 Back: CVA tenderness, that is moderate, is noted on the right. Vital Signs: 19:30 BP 128 / 96; Pulse 84; Resp 16 S; Temp 98.7(O); Pulse Ox 100% on R/A; Weight 77.11 kg lg3 (R); Height 6 ft. 0 in. (R); 20:29 BP 127 / 86; Pulse 84; Resp 16; Pulse Ox 98% on R/A; mb9 22:08 BP 122 / 84; Pulse 80; Resp 16; Pulse Ox 100% on R/A; mb9 19:30 Body Mass Index 23.06 (77.11 kg, 182.88 cm) lg3 MDM: 19:30 Patient medically screened. kb 22:02 Differential diagnosis: Pyelonephritis Ureterolithiasis uti. Data reviewed: vital kb signs, nurses notes. Consideration of Admission/Observation Escalation of care including admission/observation considered. admission considered, but pain controlled, pt is comfortable. Educated on need for follow up with urology. Counseling: I had a detailed discussion with the patient and/or guardian regarding: the historical points, exam findings, and any diagnostic results supporting the discharge/admit diagnosis, lab results, radiology results, the need for outpatient follow up, a urologist, to return to the emergency department if symptoms worsen or persist or if there are any questions or concerns that arise at home. ED course: Pt nontoxic in appearance, wbc normal, vss, pain controlled. . 10/15 19:34 Order name: CBC with Diff; Complete Time: 20:21 kb 10/15 19:34 Order name: CMP; Complete Time: 20:54 kb 10/15 19:34 Order name: Lipase; Complete Time: 20:54 kb 10/15 19:34 Order name: Urinalysis w/ reflexes; Complete Time: 20:54 kb 10/15 20:49 Order name: Urine Culture EDCA 10/15 19:34 Order name: CT Stone Protocol; Complete Time: 20:36 kb 10/15 19:34 Order name: IV Saline Lock; Complete Time: 19:52 kb 10/15 19:34 Order name: Labs collected and sent; Complete Time: 19:52 kb 10/15 20:13 Order name: Misc. Order: RECOLLECT LIGHT GREEN TOP; Complete Time: : rv1 Administered Medications: 19:45 Drug: NS 0.9% IV 1000 ml Route: IV; Rate: 1 bolus; Site: right antecubital; mb9 22:05 Follow up: Response: No adverse reaction; IV Status: Completed infusion mb9 19:45 Drug: Ondansetron IVP 4 mg Route: IVP; Site: right antecubital; mb9 20:29 Follow up: Response: No adverse reaction mb9 19:50 Drug: TORadol - Ketorolac IVP 15 mg Route: IVP; Site: right antecubital; mb9 20:29 Follow up: Response: No adverse reaction mb9 20:46 Drug: Flomax PO 0.4 mg Route: PO; mb9 22:05 Follow up: Response: No adverse reaction mb9 20:46 Drug: Magnesium Sulfate IVPB 1 grams Route: IVPB; Infused Over: 1 hrs; Site: right mb9 antecubital; 22:04 Follow up: Response: No adverse reaction; IV Status: Completed infusion mb9 20:58 Drug: Potassium Chloride PO 20 mEq Route: PO; mb9 21:54 Follow up: Response: No adverse reaction mb9 22:00 Drug: Rocephin IV 1 grams Route: IV; Rate: calculated rate; Site: right antecubital; mb9 22:05 Follow up: Response: No adverse reaction; IV Status: Completed infusion mb9 22:00 Drug: [place] PO 10 mg-325 mg 1 tabs Route: PO; mb9 22:05 Follow up: Response: No adverse reaction mb9 Disposition Summary: 10/15/22 21:49 Discharge Ordered Location: Home kb Condition: Stable kb Diagnosis - Calculus of kidney with calculus of ureter kb Followup: kb - With: Emergency Department - When: As needed - Reason: Worsening of condition Followup: kb - With: Private Physician - When: 2 - 3 days - Reason: Recheck today's complaints, Continuance of care, Re-evaluation by your physician Followup: kb - With: Mohsen Ndiaye MD - When: 1 - 2 days - Reason: Recheck today's complaints Discharge Instructions: - Discharge Summary Sheet kb - Kidney Stones, [id number] kb Forms: - Medication Reconciliation Form kb - Thank You Letter kb - Antibiotic Education kb - Prescription Opioid Use kb - [email or web address] kb Prescriptions: - Flomax 0.4 mg Oral capsule - take 1 capsule by ORAL route daily; 10 capsule; Refills: 0, Product Selection kb Permitted - Augmentin 875-125 mg Oral Tablet - take 1 tablet by ORAL route every 12 hours for 10 days; 20 tablet; Refills: 0, kb Product Selection Permitted - Zofran 4 mg Oral Tablet - take 1 tablet by ORAL route every 6 hours As needed; 12 tablet; Refills: 0, kb Product Selection Permitted - Diclofenac Sodium 75 mg Oral tablet,delayed release (DR/EC) - take 1 tablet by ORAL route 2 times per day As needed; 30 tablet; Refills: 0, kb Product Selection Permitted Addendum: 10/17/2022 07:03 Co-signature as Attending Physician, Bj Kothari MD I reviewed the patient's care r n provided by the Advanced Practice Provider and agree with the diagnosis and treatment plan. Signatures: Dispatcher [employer] Mariah Ba, FLYING I INSTRUCTOR-C FLYING I INSTRUCTOR-Ckb Bj Kothari MD MD rn Gibson, Lacie RN RN lg3 Paola Delaney RN RN mb9 Ana Gonsalez 1
--- NOTE | 2022-10-15 21:49 | ER ---
Nurse's Notes [facility] Name: Izaiah Clark Jr Age: 26 yrs Sex: Male : 1995 Arrival Date: 10/15/2022 Time: 19:21 Bed 19 Private MD: Diagnosis: Calculus of kidney with calculus of ureter Presentation: 10/15 19:30 Chief complaint: Patient states: right sided flank pain X3 days and increasingly lg3 getting worse. i have a history of kidney stones and i think i have another one. Coronavirus screen: Client denies travel out of the [place] in the last 14 days. At this time, the client does not indicate any symptoms associated with coronavirus-19. Ebola Screen: No symptoms or risks identified at this time. Initial Sepsis Screen: Does the patient meet any 2 criteria? No. Patient's initial sepsis screen is negative. Does the patient have a suspected source of infection? No. Patient's initial sepsis screen is negative. Risk Assessment: Do you want to hurt yourself or someone else? Patient reports no desire to harm self or others. Onset of symptoms was October 12, 2022. 19:30 Method Of Arrival: Ambulatory lg3 19:30 Acuity: REAGAN 3 lg3 Triage Assessment: 19:34 General: Appears in no apparent distress. comfortable, Behavior is calm, cooperative. lg3 Pain: Complains of pain in right flank Pain does not radiate. EENT: No deficits noted. No signs and/or symptoms were reported regarding the EENT system. Neuro: No deficits noted. Mejia Agitation-Sedation Scale (RASS): 0 - Alert and Calm Level of Consciousness is awake, alert, obeys commands, Oriented to person, place, time, situation. Cardiovascular: No deficits noted. Denies chest pain, shortness of breath, Capillary refill < 3 seconds Clubbing of nail beds is absent JVD Patient's skin is warm and dry. Respiratory: No deficits noted. Airway is patent Respiratory effort is even, unlabored, Respiratory pattern is regular, symmetrical. GI: No deficits noted. No signs and/or symptoms were reported involving the gastrointestinal system. Abdomen is flat, non-distended. : Reports cramping, inability to void. Derm: No deficits noted. No signs and/or symptoms reported regarding the dermatologic system. Skin is intact, is healthy with good turgor, Skin is dry, Skin is normal, Skin temperature is warm. Musculoskeletal: No deficits noted. Circulation, motion, and sensation intact. Range of motion: intact in all extremities. Historical: - Allergies: 19:34 No Known Allergies; lg3 - Home Meds: 19:34 None [Active]; lg3 - PMHx: 19:34 ADD/ADHD; Kidney stones; lg3 - PSHx: 19:34 None; lg3 - Immunization history:: Adult Immunizations up to date, Client reports receiving the 2nd dose of the Covid vaccine. - Social history:: Smoking status: Reported history of juuling and/or vaping. Patient/guardian denies using alcohol, street drugs. Screenin:53 [facility] ED Fall Risk Assessment (Adult) History of falling in the last 3 months, mb9 including since admission No falls in past 3 months (0 pts) Confusion or Disorientation No (0 pts) Intoxicated or Sedated No (0 pts) Impaired Gait No (0 pts) Mobility Assist Device Used No (0 pt) Altered Elimination No (0 pt) Score/Fall Risk Level 0 - 2 = Low Risk Oriented to surroundings, Maintained a safe environment, Educated pt \T\ family on fall prevention, incl call for assistance when getting out of bed. Abuse screen: Denies threats or abuse. Nutritional screening: No deficits noted. Tuberculosis screening: No symptoms or risk factors identified. Assessment: 19:52 General: Appears in no apparent distress. Behavior is calm, cooperative. Pain: mb9 Complains of pain in abdomen Pain radiates to back and right flank Pain currently is 5 out of 10 on a pain scale. Quality of pain is described as throbbing, Pain began 1 day ago. Is continuous. Neuro: Mejia Agitation-Sedation Scale (RASS): 0 - Alert and Calm Level of Consciousness is awake, alert, obeys commands, Oriented to person, place, time, situation, Appropriate for age. Respiratory: Airway is patent Respiratory effort is even, unlabored, Respiratory pattern is regular, symmetrical, Breath sounds are clear bilaterally. GI: Abdomen is flat, non-distended, Bowel sounds present X 4 quads. Abd is soft Abdomen is tender to palpation in right lower quadrant Reports nausea. : Urine is blood tinged. Derm: Skin is pink, warm \T\ dry. Musculoskeletal: Range of motion: intact in all extremities. 21:00 Reassessment: Patient and/or family updated on plan of care and expected duration. Pain mb9 level reassessed. Patient is alert, oriented x 3, equal unlabored respirations, skin warm/dry/pink. Patient states feeling better. Patient states symptoms have improved. 22:08 Reassessment: No changes from previously documented assessment. Patient and/or family mb9 updated on plan of care and expected duration. Pain level reassessed. Patient is alert, oriented x 3, equal unlabored respirations, skin warm/dry/pink. Vital Signs: 19:30 BP 128 / 96; Pulse 84; Resp 16 S; Temp 98.7(O); Pulse Ox 100% on R/A; Weight 77.11 kg lg3 (R); Height 6 ft. 0 in. (R); 20:29 BP 127 / 86; Pulse 84; Resp 16; Pulse Ox 98% on R/A; mb9 22:08 BP 122 / 84; Pulse 80; Resp 16; Pulse Ox 100% on R/A; mb9 19:30 Body Mass Index 23.06 (77.11 kg, 182.88 cm) lg3 ED Course: 19:26 Patient arrived in ED. ag3 19:30 [facility] Dun[facility]C [facility] kb 19:30 Bj Kothari MD is Attending Physician. kb 19:34 Triage completed. lg3 19:34 Arm band placed on left wrist. lg3 19:39 Paola Delaney, MAYKEL is Primary Nurse. mb9 19:52 CBC with Diff Sent. mb9 19:52 CMP Sent. mb9 19:52 Lipase Sent. mb9 19:53 Placed in gown. Bed in low position. Call light in reach. Side rails up X 1. Client mb9 placed on continuous cardiac and pulse oximetry monitoring. NIBP monitoring applied. 19:54 No provider procedures requiring assistance completed. mb9 20:03 CT Stone Protocol In Process Unspecified. EDMS 20:29 Urinalysis w/ reflexes Sent. mb9 21:50 Mohsen Ndiaye MD is Referral Physician. kb 22:08 IV discontinued, intact, bleeding controlled, No redness/swelling at site. Pressure mb9 dressing applied. Administered Medications: 19:45 Drug: NS 0.9% IV 1000 ml Route: IV; Rate: 1 bolus; Site: right antecubital; mb9 22:05 Follow up: Response: No adverse reaction; IV Status: Completed infusion mb9 19:45 Drug: Ondansetron IVP 4 mg Route: IVP; Site: right antecubital; mb9 20:29 Follow up: Response: No adverse reaction mb9 19:50 Drug: TORadol - Ketorolac IVP 15 mg Route: IVP; Site: right antecubital; mb9 20:29 Follow up: Response: No adverse reaction mb9 20:46 Drug: Flomax PO 0.4 mg Route: PO; mb9 22:05 Follow up: Response: No adverse reaction mb9 20:46 Drug: Magnesium Sulfate IVPB 1 grams Route: IVPB; Infused Over: 1 hrs; Site: right mb9 antecubital; 22:04 Follow up: Response: No adverse reaction; IV Status: Completed infusion mb9 20:58 Drug: Potassium Chloride PO 20 mEq Route: PO; mb9 21:54 Follow up: Response: No adverse reaction mb9 22:00 Drug: Rocephin IV 1 grams Route: IV; Rate: calculated rate; Site: right antecubital; mb9 22:05 Follow up: Response: No adverse reaction; IV Status: Completed infusion mb9 22:00 Drug: [place] PO 10 mg-325 mg 1 tabs Route: PO; mb9 22:05 Follow up: Response: No adverse reaction mb9 Medication: 22:09 VIS not applicable for this client. mb9 Outcome: 21:49 Discharge ordered by MD. mac 22:08 Discharged to home ambulatory. mb9 22:08 Condition: stable 22:08 Discharge instructions given to patient, Instructed on discharge instructions, follow up and referral plans. Demonstrated understanding of instructions, follow-up care, medications, Prescriptions given X 4. 22:09 Patient left the ED. mb9 Signatures: Dispatcher [employer] EDMariah Jauregui, AMANDO HERNANDEZ-Loida Altamirano Lacie, RN RN lg3 Paola Delaney RN RN mb9
[2022-10-15] MEDS ORDERED: HYDROCODONE/APAP 10/325 TAB ONE (22:06)
[2022-10-15] MEDS ORDERED: CEFTRIAXONE 1000 MG/VIAL ONE (22:06)
[2022-10-15 22:14] VITALS: TEMP 98.7
[2022-10-15 22:18] VITALS: BP 122/84; O2SAT 100
== END 2022-10-15 22:09 | disposition home or self-care (01) ==
LOC: ER 19:21
DX: N20.2 Calculus of kidney with calculus of ureter (principal)
CPT/HCPCS: 96365; 96361; 87088; 85025; 81001; 87086; 36415; 83690; 80053; 76377; 74176; 96375; 99284; J3475; J2405; J7030; J0696